=== PATIENT | female | born 2000 | race Caucasian/White ===

== ENCOUNTER 2024-12-06 14:07 | Outpatient (CLI) | payer MEDICAID, SELFPAY | END 2024-12-06 14:08 | disposition home or self-care (01) | PROVIDERS: PCP Pediatrics; Visit Provider Obstetrics & Gynecology | DX: F64.9 Gender identity disorder, unspecified (principal); Z79.899 Other long term (current) drug therapy | CPT/HCPCS: 80076; 84403 ==

== ENCOUNTER 2025-04-18 13:45 | Outpatient (CLI) | payer MEDICAID, SELFPAY | END 2025-04-18 13:46 | disposition home or self-care (01) | LOC: NFLDREF 04-20 13:30 | PROVIDERS: PCP Pediatrics; Referring Provider Pediatrics; Visit Provider Obstetrics & Gynecology | DX: F64.9 Gender identity disorder, unspecified (principal); Z79.899 Other long term (current) drug therapy | CPT/HCPCS: 84403 ==

== ENCOUNTER 2025-07-19 15:38 | Outpatient (CLI) | payer MEDICAID, SELFPAY | END 2025-07-19 15:39 | disposition home or self-care (01) | LOC: NFLDREF 08-01 09:24 | PROVIDERS: PCP Pediatrics; Referring Provider Pediatrics; Visit Provider Obstetrics & Gynecology | DX: F64.9 Gender identity disorder, unspecified (principal); Z79.899 Other long term (current) drug therapy | CPT/HCPCS: 84403 ==